=== PATIENT | male | born 1990 | race African-American/Black ===

== ENCOUNTER 2019-03-07 05:52 | Emergency (ER) | payer SELFPAY ==
--- NOTE | 2019-03-07 06:51 | ER ---
Nurse's Notes [facility] Name: Robert Dillard Age: 29 yrs Sex: Male : 1990 Arrival Date: 03/07/2019 Time: 06:02 Bed 7 Private MD: Diagnosis: Dental caries, unspecified;Cracked tooth Presentation: 03/07 05:42 Method Of Arrival: EMS: [facility] 06:02 Presenting complaint: EMS states: patient stated that he woke up in pain on his left vc tooth. Upon observation the tooth has decay. Patient stated that he has been dealing with this tooth for 4 years. Transition of care: patient was not received from another setting of care. Onset of symptoms was March 07, 2019. Risk Assessment: Do you want to hurt yourself or someone else? Patient reports no desire to harm self or others. Initial Sepsis Screen: Does the patient meet any 2 criteria? RR > 20 per min. No. Patient's initial sepsis screen is negative. Does the patient have a suspected source of infection? Yes: Other: tooth on left side of mouth. Care prior to arrival: None. 06:02 Acuity: NORMA 4 vc Historical: - Allergies: 06:06 No Known Allergies; vc - Home Meds: 06:06 None [Active]; vc - PMHx: 06:06 None; vc - PSHx: 06:06 None; vc - Immunization history:: Adult Immunizations up to date. - Social history:: Smoking status: Patient reports the use of cigarette tobacco products, smokes one-half pack cigarettes per day. - Ebola Screening: : No symptoms or risks identified at this time. Screenin:08 Abuse screen: Denies threats or abuse. Nutritional screening: No deficits noted. vc Tuberculosis screening: No symptoms or risk factors identified. Fall Risk None identified. Assessment: 06:11 General: Appears in no apparent distress. uncomfortable, Behavior is calm, cooperative, vc quiet. Pain: Complains of pain in tooth on left side. Pain at worst was 10 out of 10 on a pain scale. Neuro: Level of Consciousness is awake, alert, obeys commands, Oriented to person, place, time. Cardiovascular: Patient's skin is warm and dry. Respiratory: Airway is patent Respiratory effort is even, unlabored. GI: No signs and/or symptoms were reported involving the gastrointestinal system. : No signs and/or symptoms were reported regarding the genitourinary system. EENT: Reports pain in tooth. Derm: Skin is dry. Musculoskeletal: Circulation, motion, and sensation intact. Range of motion: intact in all extremities. 06:33 Reassessment: Patient ambulated to restroom. vc Vital Signs: 06:06 BP 139 / 91; Pulse 93; Resp 22; Temp 98.6(O); Pulse Ox 98% on R/A; Weight 65.77 kg; vc Height 5 ft. 6 in. (167.64 cm); Pain 10/10; 06:44 BP 120 / 52; Pulse 60; Resp 18; Pulse Ox 100% ; vc 06:06 Body Mass Index 23.40 (65.77 kg, 167.64 cm) vc ED Course: 06:02 Patient arrived in ED. vc 06:05 Triage completed. vc 06:13 Arm band placed on. vc 06:13 Patient has correct armband on for positive identification. vc 06:14 Shelly Ponce RN is Primary Nurse. vc 06:49 Caleb Cisneros MD is Attending Physician. tw4 07:04 No provider procedures requiring assistance completed. Patient did not have IV access vc during this emergency room visit. Administered Medications: 06:53 Drug: TORadol 60 mg Route: IM; Site: left deltoid; vc 07:05 Follow up: Response: No adverse reaction vc Outcome: 06:50 Discharge ordered by . tw4 07:04 Condition: good vc 07:04 Discharge instructions given to patient. 07:30 Discharged to home ambulatory. hb 07:30 Patient left the ED. hb Signatures: Komal Lin RN RN hb Wadley, Terrence, MD MD 4 Shelly Ponce RN RN vc Corrections: (The following items were deleted from the chart) 06:06 06:02 Method Of Arrival: EMS: [facility] vc vc :14 06:09 General: Appears in no apparent distress. uncomfortable, Behavior is calm, vc cooperative, quiet, vc 06:14 06:09 Pain: Complains of pain in tooth on the left side of mouth. vc vc : 06:09 EENT: Reports pain Pain is 10 out of 10 on a pain scale. vc vc : 06:09 Neuro: Level of Consciousness is awake, alert, obeys commands, Oriented to vc person, place, time, vc : 06:09 Cardiovascular: Patient's skin is warm and dry. vc vc 06:09 Respiratory: Respiratory effort is even, unlabored, vc vc 06:09 GI: No signs and/or symptoms were reported involving the gastrointestinal system. vc vc 06:09 : No signs and/or symptoms were reported regarding the genitourinary system. vc vc 06: Derm: Skin is healthy with good turgor, Skin is dry, vc vc 06:09 Musculoskeletal: Circulation, motion, and sensation intact. Range of motion: vc intact in all extremities, vc
--- NOTE | 2019-03-07 06:51 | EDPHYS ---
Physician Documentation [facility] Name: Robert Dillard Age: 29 yrs Sex: Male : 1990 Arrival Date: 03/07/2019 Time: 06:02 Bed 7 Private MD: ED Physician Caleb Cisneros HPI: 03/07 06:51 This 29 yrs old Male presents to ER via EMS with complaints of Toothache. tw4 06:51 The patient presents with pain. tw4 06:51 The problem is located in the lower left third molar. Onset: The symptoms/episode tw4 began/occurred 4 year(s) ago, and became worse just prior to arrival. Duration: The symptoms are continuous, but are steadily getting better. Severity of symptoms: At their worst the symptoms were moderate, in the emergency department the symptoms are unchanged. The patient has experienced similar episodes in the past, chronically. Historical: - Allergies: 06:06 No Known Allergies; vc - Home Meds: 06:06 None [Active]; vc - PMHx: 06:06 None; vc - PSHx: 06:06 None; vc - Immunization history:: Adult Immunizations up to date. - Social history:: Smoking status: Patient reports the use of cigarette tobacco products, smokes one-half pack cigarettes per day. - Ebola Screening: : No symptoms or risks identified at this time. ROS: 06:51 Constitutional: Negative for fever, chills, and weight loss, Eyes: Negative for injury, tw4 pain, redness, and discharge. 06:51 Cardiovascular: Negative for chest pain, palpitations, and edema, Respiratory: Negative for shortness of breath, cough, wheezing, and pleuritic chest pain, Abdomen/GI: Negative for abdominal pain, nausea, vomiting, diarrhea, and constipation, Back: Negative for injury and pain. 06:51 ENT: Positive for dental pain. Exam: 06:51 Constitutional: This is a well developed, well nourished patient who is awake, alert, tw4 and in no acute distress. Head/Face: Normocephalic, atraumatic. 06:51 ENT: External ear(s): are unremarkable, Nose: is normal, Mouth: is normal, Posterior pharynx: is normal, Dental exam: fractured teeth are noted, specifically the lower left third molar (#17) and lower right third molar (#32). Vital Signs: 06:06 BP 139 / 91; Pulse 93; Resp 22; Temp 98.6(O); Pulse Ox 98% on R/A; Weight 65.77 kg; vc Height 5 ft. 6 in. (167.64 cm); Pain 10/10; 06:44 BP 120 / 52; Pulse 60; Resp 18; Pulse Ox 100% ; vc 06:06 Body Mass Index 23.40 (65.77 kg, 167.64 cm) vc MDM: 06:49 Patient medically screened. tw4 06:51 Differential diagnosis: dental caries. Data reviewed: vital signs, nurses notes. Data tw4 interpreted: Pulse oximetry: Interpretation: normal. Counseling: I had a detailed discussion with the patient and/or guardian regarding: the historical points, exam findings, and any diagnostic results supporting the discharge/admit diagnosis. Special discussion: I discussed with the patient/guardian in detail that at this point there is no indication for admission to the hospital. It is understood, however, that if the symptoms persist or worsen the patient needs to return immediately for re-evaluation. Administered Medications: 06:53 Drug: TORadol 60 mg Route: IM; Site: left deltoid; vc 07:05 Follow up: Response: No adverse reaction vc Disposition: 03/07/19 06:50 Discharged to Home. Impression: Dental caries, unspecified, Cracked tooth. - Condition is Stable. - Discharge Instructions: Dental Caries, Adult, Dental Pain, Tooth Injuries, Preventive Dental Care, Adult. - Prescriptions for Ibuprofen 800 mg Oral Tablet - take 1 tablet by ORAL route every 8 hours As needed take with food; 30 tablet. Tylenol- Codeine #3 300-30 mg Oral Tablet - take 2 tablet by ORAL route every 6 hours As needed; 6 tablet. - Medication Reconciliation Form, Thank You Letter, Antibiotic Education, Prescription Opioid Use form. - Follow up: Private Physician; When: Upon discharge from the Emergency Department; Reason: Recheck today's complaints, Continuance of care. - Problem is new. - Symptoms have improved. Signatures: Komal Lin RN RN Caleb Kemp MD MD tw4 Shelly Ponce RN RN vc Corrections: (The following items were deleted from the chart) 07:30 06:50 03/07/2019 06:50 Discharged to Home. Impression: Dental caries, unspecified; hb Cracked tooth. Condition is Stable. Forms are Medication Reconciliation Form, Thank You Letter, Antibiotic Education, Prescription Opioid Use. Follow up: Private Physician; When: Upon discharge from the Emergency Department; Reason: Recheck today's complaints, Continuance of care. Problem is new. Symptoms have improved. tw4
[2019-03-07] MEDS ORDERED: KETOROLAC 30 MG/ML INJ ONE (06:52)
[2019-03-07 07:36] VITALS: TEMP 98.6
[2019-03-07 07:37] VITALS: BP 120/52; O2SAT 100
== END 2019-03-07 07:30 | disposition home or self-care (01) ==
LOC: ER 05:52
DX: K03.81 Cracked tooth (principal); F17.210 Nicotine dependence, cigarettes, uncomplicated
CPT/HCPCS: 96372; 99283